=== PATIENT | male | born 1995 | race Caucasian/White ===

== ENCOUNTER → 2017-03-23 | Outpatient (REF) ==
--- NOTE | 2017-03-24 01:37 | REP ---
Clinical: Pain and disability. Technique: AP, lateral, coned-down views of the lumbar spine. Findings: Three views of the lumbosacral spine demonstrate satisfactory alignment and lordosis without acute fracture / compression injury or subluxation. No significant degenerative changes are appreciated. Impression: Normal lumbosacral spine radiographs. No acute fracture / compression injury or subluxation. Signed by Manan Agudelo MD 03/24/2017 01:27 A
--- NOTE | 2017-03-24 01:44 | REP ---
Clinical: Pain . Technique: Internal rotation, external rotation, and Y view right shoulder . Findings: No acute fracture or dislocation. The acromioclavicular and glenohumeral joints are intact. No periarticular calcifications or degenerative changes are appreciated. Sub acromial space is normal. Surrounding soft tissues are unremarkable. Impression: Normal age appropriate right shoulder radiographs. Signed by Manan Agudelo MD 03/24/2017 01:36 A
== END ==
LOC: M SMT 15:53
PROVIDERS: ATTEND Internal Medicine
DX: Z02.1 Encounter for pre-employment examination (principal)